=== PATIENT | female | born 1940 | race Caucasian/White ===

== ENCOUNTER 2019-03-19 21:38 | Observation (INO) ==
[2019-03-20] MEDS ORDERED: Naloxone 0.4 MG/ML INJ IVP PRN (04:43)
[2019-03-20] MEDS ORDERED: D5% in Water 1,000 ML IVC PRN (04:44)
[2019-03-20] MEDS ORDERED: Dextrose Gel 15 GM/37.5 ML TUBE PO PRN ×2 (04:44)
[2019-03-20] MEDS ORDERED: *HR* Dextrose 50 % in Water (Syg) 50 ML SYRINGE IVP PRN (04:44)
[2019-03-20] MEDS: 0.9 % Sodium Chloride 1,000 ML IVC SCH ×2 (05:24→21:40)
[2019-03-20] MEDS: Insulin LISPRO 300 UNITS/3 ML VIAL SQ SCH ×3 (05:28→17:51)
[2019-03-20] MEDS: Nicotine 21 MG PATCH.TD24 TD SCH (06:04)
[2019-03-20 07:13] LABS: Hematocrit 31.4 % (35.3-44.9); Hemoglobin 10.1 g/dL (11.5-15.4); Mean Corpuscular HGB Conc 32.2 g/dL (31.6-35.5); Mean Corpuscular Hemoglobin 29.5 pg (28.0-33.3); Mean Corpuscular Volume 91.8 fL (83.0-100.0); Mean Platelet Volume 10.4 fL (9.4-12.4); Platelet Count 366 K/mcL (140-400); Red Blood Count 3.42 M/mcL (3.82-4.97); Red Cell Distribution Width 14.7 % (11.5-14.5)
[2019-03-20 07:21] LABS: INR 1.1; Prothrombin Time 12.6 Seconds (9.4-12.1)
[2019-03-20 07:23] LABS: Activated Partial Thrombo Time 29.3 Seconds (26.0-36.0)
[2019-03-20 07:32] LABS: Alanine Aminotransferase 11 Units/L (7-52); Albumin 3.2 g/dL (3.5-5.7); Albumin/Globulin Ratio 1.1 (1.1-2.2); Alkaline Phosphatase 84 Units/L (34-104); Aspartate Amino Transferase 10 Units/L (13-39); BUN/Creatinine Ratio 16 (6-26); Bilirubin,Total 0.4 mg/dL (0.3-1.0); Blood Urea Nitrogen 11 mg/dL (8-23); Calcium 8.4 mg/dL (8.6-10.3); Carbon Dioxide 22 mEq/L (23-29); Chloride 100 mEq/L (98-107); Globulin 2.9 g/dL (2.4-3.5); Glucose 151 mg/dL (70-105); Magnesium 1.6 mg/dL (1.6-2.6); Osmolality,Calculated 280 (280-300); Potassium 3.6 mEq/L (3.5-5.1); Sodium 134 mEq/L (136-145); Total Protein 6.1 g/dL (6.4-8.9); eGFR For African Americans > 60 (> 60); eGFR For Non-African Americans > 60 (> 60)
[2019-03-20] MEDS: Piperacillin/Tazobactam 3.375 GM in 0.9 % Sodium Chloride Mini Bag 100 ML IVPB SCH ×2 (08:39→16:43)
[2019-03-20] MEDS: *HR* Heparin 5,000 UNIT/ML VIAL SQ SCH (16:43)
[2019-03-20] MEDS: hydrALAZINE 25 MG TABLET PO SCH ×2 (16:44→21:43)
[2019-03-20] MEDS: Ondansetron 4 MG/2 ML VIAL IVP PRN (22:57)
[2019-03-21] MEDS: Piperacillin/Tazobactam 3.375 GM in 0.9 % Sodium Chloride Mini Bag 100 ML IVPB SCH ×3 (00:10→18:02)
[2019-03-21] MEDS: *HR* Heparin 5,000 UNIT/ML VIAL SQ SCH ×2 (05:13→17:37)
[2019-03-21] MEDS: Insulin LISPRO 300 UNITS/3 ML VIAL SQ SCH ×3 (08:21→17:31)
[2019-03-21] MEDS: Aspirin 81 MG TAB.CHEW PO SCH (10:11)
[2019-03-21] MEDS: Diltiazem CD (24hr) 120 MG CAPSULE PO SCH (10:11)
[2019-03-21] MEDS: Isosorbide MONOnitrate (24 HR) 30 MG TAB.ER.24H PO SCH (10:11)
[2019-03-21] MEDS: Furosemide 40 MG TABLET PO SCH (10:11)
[2019-03-21] MEDS: Famotidine 20 MG TABLET PO SCH (10:11)
[2019-03-21] MEDS: *HR* SitaGLIPtin 100 MG TABLET PO SCH (10:12)
[2019-03-21] MEDS: hydrALAZINE 25 MG TABLET PO SCH ×3 (10:12→19:56)
[2019-03-21] MEDS: Nicotine 21 MG PATCH.TD24 TD SCH (10:13)
[2019-03-21 20:51] LABS: Hematocrit 26.9 % (35.3-44.9); Hemoglobin 9.2 g/dL (11.5-15.4); Mean Corpuscular HGB Conc 34.2 g/dL (31.6-35.5); Mean Corpuscular Hemoglobin 29.6 pg (28.0-33.3); Mean Corpuscular Volume 86.5 fL (83.0-100.0); Mean Platelet Volume 10.5 fL (9.4-12.4); Platelet Count 355 K/mcL (140-400); Red Blood Count 3.11 M/mcL (3.82-4.97); Red Cell Distribution Width 14.6 % (11.5-14.5); White Blood Count 13.5 K/mcL (4.3-11.1)
[2019-03-21 22:36] LABS: BUN/Creatinine Ratio 11 (6-26); Blood Urea Nitrogen 10 mg/dL (8-23); Calcium 8.3 mg/dL (8.6-10.3); Carbon Dioxide 21 mEq/L (23-29); Chloride 98 mEq/L (98-107); Glucose 171 mg/dL (70-105); Magnesium 1.6 mg/dL (1.6-2.6); Osmolality,Calculated 275 (280-300); Potassium 3.6 mEq/L (3.5-5.1); Sodium 131 mEq/L (136-145); eGFR For African Americans > 60 (> 60); eGFR For Non-African Americans > 60 (> 60)
[2019-03-22] MEDS: Piperacillin/Tazobactam 3.375 GM in 0.9 % Sodium Chloride Mini Bag 100 ML IVPB SCH ×3 (00:45→16:55)
[2019-03-22] MEDS: *HR* Heparin 5,000 UNIT/ML VIAL SQ SCH ×2 (05:27→16:56)
[2019-03-22] MEDS: Aspirin 81 MG TAB.CHEW PO SCH (09:59)
[2019-03-22] MEDS: Furosemide 40 MG TABLET PO SCH (09:59)
[2019-03-22] MEDS: Diltiazem CD (24hr) 120 MG CAPSULE PO SCH (09:59)
[2019-03-22] MEDS: Isosorbide MONOnitrate (24 HR) 30 MG TAB.ER.24H PO SCH (09:59)
[2019-03-22] MEDS: Famotidine 20 MG TABLET PO SCH (10:00)
[2019-03-22] MEDS: hydrALAZINE 25 MG TABLET PO SCH ×3 (10:00→20:53)
[2019-03-22] MEDS: *HR* SitaGLIPtin 100 MG TABLET PO SCH (10:00)
[2019-03-22] MEDS: Insulin LISPRO 300 UNITS/3 ML VIAL SQ SCH ×3 (10:01→16:56)
[2019-03-22] MEDS: Nicotine 21 MG PATCH.TD24 TD SCH (10:02)
[2019-03-22 21:55] LABS: Hematocrit 28.9 % (35.3-44.9); Hemoglobin 9.5 g/dL (11.5-15.4); Immature Platelets 2.8 % (1.1-6.1); Mean Corpuscular HGB Conc 32.9 g/dL (31.6-35.5); Mean Corpuscular Hemoglobin 28.8 pg (28.0-33.3); Mean Corpuscular Volume 87.6 fL (83.0-100.0); Red Blood Count 3.3 M/mcL (3.82-4.97); Red Cell Distribution Width 14.5 % (11.5-14.5); White Blood Count 7.4 K/mcL (4.3-11.1)
[2019-03-22 22:32] LABS: BUN/Creatinine Ratio 10 (6-26); Blood Urea Nitrogen 9 mg/dL (8-23); Calcium 8.8 mg/dL (8.6-10.3); Carbon Dioxide 23 mEq/L (23-29); Chloride 99 mEq/L (98-107); Glucose 161 mg/dL (70-105); Osmolality,Calculated 274 (280-300); Potassium 3.6 mEq/L (3.5-5.1); Sodium 131 mEq/L (136-145); eGFR For African Americans > 60 (> 60); eGFR For Non-African Americans > 60 (> 60)
[2019-03-23] MEDS: Piperacillin/Tazobactam 3.375 GM in 0.9 % Sodium Chloride Mini Bag 100 ML IVPB SCH ×3 (00:45→15:42)
[2019-03-23] MEDS: *HR* Heparin 5,000 UNIT/ML VIAL SQ SCH ×2 (05:46→17:15)
[2019-03-23] MEDS: Ondansetron 4 MG/2 ML VIAL IVP PRN (09:27)
[2019-03-23] MEDS: Nicotine 21 MG PATCH.TD24 TD SCH ×2 (09:29→09:45)
[2019-03-23] MEDS: Famotidine 20 MG TABLET PO SCH (09:30)
[2019-03-23] MEDS: hydrALAZINE 25 MG TABLET PO SCH ×3 (09:30→21:08)
[2019-03-23] MEDS: Diltiazem CD (24hr) 120 MG CAPSULE PO SCH (09:30)
[2019-03-23] MEDS: Furosemide 40 MG TABLET PO SCH (09:30)
[2019-03-23] MEDS: Isosorbide MONOnitrate (24 HR) 30 MG TAB.ER.24H PO SCH (09:30)
[2019-03-23] MEDS: Aspirin 81 MG TAB.CHEW PO SCH (09:31)
[2019-03-23] MEDS: *HR* SitaGLIPtin 100 MG TABLET PO SCH (09:31)
[2019-03-23] MEDS: Insulin LISPRO 300 UNITS/3 ML VIAL SQ SCH ×3 (09:32→17:12)
[2019-03-23] MEDS: Budesonide/Formoterol 160/4.5 1 PUFF INH IH SCH (20:18)
[2019-03-23] MEDS: Acetaminophen 325 MG TABLET PO PRN (21:27)
[2019-03-24] MEDS: Piperacillin/Tazobactam 3.375 GM in 0.9 % Sodium Chloride Mini Bag 100 ML IVPB SCH ×3 (01:02→15:59)
[2019-03-24] MEDS: Acetaminophen 325 MG TABLET PO PRN (02:18)
[2019-03-24 05:09] LABS: Hematocrit 25.9 % (35.3-44.9); Hemoglobin 8.4 g/dL (11.5-15.4); Mean Corpuscular HGB Conc 32.4 g/dL (31.6-35.5); Mean Corpuscular Hemoglobin 28.9 pg (28.0-33.3); Mean Platelet Volume 10.5 fL (9.4-12.4); Platelet Count 390 K/mcL (140-400); Red Blood Count 2.91 M/mcL (3.82-4.97); Red Cell Distribution Width 14.6 % (11.5-14.5)
[2019-03-24 05:16] LABS: White Blood Count 6.2 K/mcL (4.3-11.1)
[2019-03-24 05:43] LABS: BUN/Creatinine Ratio 9 (6-26); Blood Urea Nitrogen 7 mg/dL (8-23); Calcium 8.6 mg/dL (8.6-10.3); Carbon Dioxide 26 mEq/L (23-29); Chloride 99 mEq/L (98-107); Glucose 133 mg/dL (70-105); Magnesium 1.8 mg/dL (1.6-2.6); Osmolality,Calculated 278 (280-300); Potassium 3.6 mEq/L (3.5-5.1); Sodium 134 mEq/L (136-145); eGFR For African Americans > 60 (> 60); eGFR For Non-African Americans > 60 (> 60)
[2019-03-24] MEDS: *HR* Heparin 5,000 UNIT/ML VIAL SQ SCH ×2 (05:50→17:40)
[2019-03-24] MEDS: Budesonide/Formoterol 160/4.5 1 PUFF INH IH SCH ×2 (07:50→19:57)
[2019-03-24] MEDS: Insulin LISPRO 300 UNITS/3 ML VIAL SQ SCH ×3 (08:40→17:13)
[2019-03-24] MEDS: Aspirin 81 MG TAB.CHEW PO SCH (08:44)
[2019-03-24] MEDS: Diltiazem CD (24hr) 120 MG CAPSULE PO SCH (08:44)
[2019-03-24] MEDS: hydrALAZINE 25 MG TABLET PO SCH ×3 (08:44→20:16)
[2019-03-24] MEDS: Isosorbide MONOnitrate (24 HR) 30 MG TAB.ER.24H PO SCH (08:44)
[2019-03-24] MEDS: Furosemide 40 MG TABLET PO SCH (08:45)
[2019-03-24] MEDS: *HR* SitaGLIPtin 100 MG TABLET PO SCH (08:45)
[2019-03-24] MEDS: Nicotine 21 MG PATCH.TD24 TD SCH (08:46)
[2019-03-24] MEDS: Famotidine 20 MG TABLET PO SCH (08:46)
[2019-03-24] MEDS: cloNIDine HCl 0.1 MG TABLET PO SCH (20:16)
[2019-03-24] MEDS: Insulin DETEMIR 100 UNIT/ML X5UNITS SQ SCH (20:19)
[2019-03-25] MEDS: Piperacillin/Tazobactam 3.375 GM in 0.9 % Sodium Chloride Mini Bag 100 ML IVPB SCH ×3 (01:03→16:04)
[2019-03-25] MEDS: *HR* Heparin 5,000 UNIT/ML VIAL SQ SCH ×2 (06:37→17:51)
[2019-03-25] MEDS: Budesonide/Formoterol 160/4.5 1 PUFF INH IH SCH ×2 (07:31→21:50)
[2019-03-25] MEDS: Insulin LISPRO 300 UNITS/3 ML VIAL SQ SCH ×3 (08:21→17:50)
[2019-03-25] MEDS: Fluticasone Propionate Nasal 50 MCG/SPRAY BOTTLE NS SCH (08:21)
[2019-03-25] MEDS: Aspirin 81 MG TAB.CHEW PO SCH (08:22)
[2019-03-25] MEDS: Furosemide 40 MG TABLET PO SCH (08:22)
[2019-03-25] MEDS: Famotidine 20 MG TABLET PO SCH (08:23)
[2019-03-25] MEDS: hydrALAZINE 25 MG TABLET PO SCH ×3 (08:23→21:06)
[2019-03-25] MEDS: Isosorbide MONOnitrate (24 HR) 30 MG TAB.ER.24H PO SCH (08:23)
[2019-03-25] MEDS: Diltiazem CD (24hr) 120 MG CAPSULE PO SCH (08:23)
[2019-03-25] MEDS: Nicotine 21 MG PATCH.TD24 TD SCH (08:24)
[2019-03-25] MEDS ORDERED: MEMANTINE HCL 14 MG PO SCH (09:00)
[2019-03-25] MEDS ORDERED: *HR* SitaGLIPtin 100 MG TABLET PO SCH (09:00)
[2019-03-25] MEDS: Insulin DETEMIR 100 UNIT/ML X5UNITS SQ SCH (21:05)
[2019-03-25] MEDS: cloNIDine HCl 0.1 MG TABLET PO SCH (21:05)
[2019-03-25] MEDS: Acetaminophen 325 MG TABLET PO PRN (21:17)
[2019-03-26] MEDS: Piperacillin/Tazobactam 3.375 GM in 0.9 % Sodium Chloride Mini Bag 100 ML IVPB SCH ×3 (00:50→15:17)
[2019-03-26] MEDS: *HR* Heparin 5,000 UNIT/ML VIAL SQ SCH ×2 (06:13→17:42)
[2019-03-26] MEDS: Budesonide/Formoterol 160/4.5 1 PUFF INH IH SCH ×2 (08:09→19:53)
[2019-03-26] MEDS: Insulin LISPRO 300 UNITS/3 ML VIAL SQ SCH ×3 (08:30→17:42)
[2019-03-26] MEDS: hydrALAZINE 25 MG TABLET PO SCH ×3 (08:43→21:03)
[2019-03-26] MEDS: Isosorbide MONOnitrate (24 HR) 30 MG TAB.ER.24H PO SCH (08:43)
[2019-03-26] MEDS: Aspirin 81 MG TAB.CHEW PO SCH (08:44)
[2019-03-26] MEDS: Furosemide 40 MG TABLET PO SCH (08:44)
[2019-03-26] MEDS: Famotidine 20 MG TABLET PO SCH (08:44)
[2019-03-26] MEDS: *HR* SitaGLIPtin 25 MG TABLET PO SCH (08:44)
[2019-03-26] MEDS: Diltiazem CD (24hr) 120 MG CAPSULE PO SCH (08:44)
[2019-03-26] MEDS: Nicotine 21 MG PATCH.TD24 TD SCH (08:45)
[2019-03-26] MEDS: Fluticasone Propionate Nasal 50 MCG/SPRAY BOTTLE NS SCH (08:45)
[2019-03-26] MEDS ORDERED: Aminoglycoside Consult 1 EACH MC ONE (12:44)
[2019-03-26] MEDS: Acetaminophen 325 MG TABLET PO PRN (21:03)
[2019-03-26] MEDS: cloNIDine HCl 0.1 MG TABLET PO SCH (21:03)
[2019-03-26] MEDS: Menthol 9.1 MG LOZENGE PO PRN (21:04)
[2019-03-26] MEDS: Insulin DETEMIR 100 UNIT/ML X5UNITS SQ SCH (21:04)
[2019-03-27] MEDS: Piperacillin/Tazobactam 3.375 GM in 0.9 % Sodium Chloride Mini Bag 100 ML IVPB SCH (00:25)
[2019-03-27] MEDS: *HR* Heparin 5,000 UNIT/ML VIAL SQ SCH ×2 (06:14→16:44)
[2019-03-27 06:38] LABS: Basophils % 0.3 %; Eosinophils # 0.1 K/mcL (0.0-0.6); Eosinophils % 2.1 %; Hematocrit 28.2 % (35.3-44.9); Hemoglobin 9.1 g/dL (11.5-15.4); Lymphocytes # 1.4 K/mcL (0.6-4.6); Lymphocytes % 21.8 %; Mean Corpuscular HGB Conc 32.3 g/dL (31.6-35.5); Mean Corpuscular Hemoglobin 29.1 pg (28.0-33.3); Mean Corpuscular Volume 90.1 fL (83.0-100.0); Mean Platelet Volume 10.4 fL (9.4-12.4); Monocytes # 0.6 K/mcL (0.0-1.3); Monocytes % 9.6 %; Neutrophils # 4.1 K/mcL (1.6-8.9); Platelet Count 412 K/mcL (140-400); Red Blood Count 3.13 M/mcL (3.82-4.97); Red Cell Distribution Width 14.8 % (11.5-14.5); Segmented Neutrophils % 65.2 %; White Blood Count 6.3 K/mcL (4.3-11.1)
[2019-03-27 06:57] LABS: BUN/Creatinine Ratio 13 (6-26); Blood Urea Nitrogen 10 mg/dL (8-23); Carbon Dioxide 26 mEq/L (23-29); Chloride 98 mEq/L (98-107); Glucose 123 mg/dL (70-105); Osmolality,Calculated 278 (280-300); Potassium 3.3 mEq/L (3.5-5.1); Sodium 134 mEq/L (136-145); eGFR For African Americans > 60 (> 60); eGFR For Non-African Americans > 60 (> 60)
[2019-03-27] MEDS: Budesonide/Formoterol 160/4.5 1 PUFF INH IH SCH ×2 (07:23→20:03)
[2019-03-27] MEDS: Insulin LISPRO 300 UNITS/3 ML VIAL SQ SCH ×3 (08:20→16:43)
[2019-03-27] MEDS: Aspirin 81 MG TAB.CHEW PO SCH (09:36)
[2019-03-27] MEDS: Furosemide 40 MG TABLET PO SCH (09:36)
[2019-03-27] MEDS: Famotidine 20 MG TABLET PO SCH (09:37)
[2019-03-27] MEDS: *HR* SitaGLIPtin 25 MG TABLET PO SCH (09:37)
[2019-03-27] MEDS: cloNIDine HCl 0.1 MG TABLET PO SCH ×2 (09:37→20:54)
[2019-03-27] MEDS: Diltiazem CD (24hr) 120 MG CAPSULE PO SCH (09:41)
[2019-03-27] MEDS: hydrALAZINE 25 MG TABLET PO SCH ×3 (09:41→20:54)
[2019-03-27] MEDS: Isosorbide MONOnitrate (24 HR) 30 MG TAB.ER.24H PO SCH (09:41)
[2019-03-27] MEDS: Nicotine 21 MG PATCH.TD24 TD SCH (09:42)
[2019-03-27] MEDS: Fluticasone Propionate Nasal 50 MCG/SPRAY BOTTLE NS SCH (09:42)
[2019-03-27] MEDS: cephALEXin 500 MG CAPSULE PO SCH ×2 (10:32→20:54)
[2019-03-27] MEDS: Doxycycline 100 MG CAPSULE PO SCH ×2 (10:32→20:54)
[2019-03-27] MEDS: Acetaminophen 325 MG TABLET PO PRN (10:56)
[2019-03-27] MEDS: Insulin DETEMIR 100 UNIT/ML X5UNITS SQ SCH (20:55)
[2019-03-27] MEDS: Menthol 9.1 MG LOZENGE PO PRN (21:02)
[2019-03-28] MEDS: *HR* Heparin 5,000 UNIT/ML VIAL SQ SCH (05:39)
[2019-03-28 07:51] VITALS: BP 138/73
[2019-03-28] MEDS: Nicotine 21 MG PATCH.TD24 TD SCH (08:10)
[2019-03-28] MEDS: Acetaminophen 325 MG TABLET PO PRN (08:11)
[2019-03-28] MEDS: Furosemide 40 MG TABLET PO SCH (08:11)
[2019-03-28] MEDS: Doxycycline 100 MG CAPSULE PO SCH (08:11)
[2019-03-28] MEDS: Famotidine 20 MG TABLET PO SCH (08:11)
[2019-03-28] MEDS: cloNIDine HCl 0.1 MG TABLET PO SCH (08:12)
[2019-03-28] MEDS: cephALEXin 500 MG CAPSULE PO SCH (08:12)
[2019-03-28] MEDS: Diltiazem CD (24hr) 120 MG CAPSULE PO SCH (08:12)
[2019-03-28] MEDS: *HR* SitaGLIPtin 25 MG TABLET PO SCH (08:12)
[2019-03-28] MEDS: Isosorbide MONOnitrate (24 HR) 30 MG TAB.ER.24H PO SCH (08:12)
[2019-03-28] MEDS: hydrALAZINE 25 MG TABLET PO SCH (08:12)
[2019-03-28] MEDS: Insulin LISPRO 300 UNITS/3 ML VIAL SQ SCH ×2 (08:13→11:57)
[2019-03-28] MEDS: Aspirin 81 MG TAB.CHEW PO SCH (08:13)
[2019-03-28] MEDS: Fluticasone Propionate Nasal 50 MCG/SPRAY BOTTLE NS SCH (08:14)
[2019-03-28] MEDS: Budesonide/Formoterol 160/4.5 1 PUFF INH IH SCH (10:51)
[2019-03-28] MEDS ORDERED: predniSONE 20 MG TABLET PO SCH (12:06)
[2019-03-28] MEDS: Ipratropium/Albuterol Neb 3 ML IH SCH ×2 (15:29→15:30)
== END 2019-03-28 12:45 ==
LOC: 3NENU → SUATTDRO 03-20 01:07 → 3ANU 03-23 17:30
PROVIDERS: ADMIT Internal Medicine; ATTEND Internal Medicine

== ENCOUNTER 2020-01-13 22:36 | Observation (INO) ==
[2020-01-14] MEDS ORDERED: Naloxone 0.4 MG/ML INJ IVP PRN (05:02)
[2020-01-14] MEDS ORDERED: Ondansetron ODT 4 MG TAB.RAPDIS SL PRN (05:02)
[2020-01-14] MEDS ORDERED: Perflutren Lipid Microsphere 1.3 ML in 0.9 % Sodium Chloride 8.7 ML IVP PRN (05:06)
[2020-01-14 06:02] LABS: Adenovirus Not Detected (Not Detect); Bordetella Pertussis Not Detected (Not Detect); Chlamydophila pneumoniae Not Detected (Not Detect); Coronavirus 229E Not Detected (Not Detect); Coronavirus HKU1 Not Detected (Not Detect); Coronavirus NL63 Not Detected (Not Detect); Coronavirus OC43 Not Detected (Not Detect); Human Metapneumovirus Not Detected (Not Detect); Human Rhinovirus/Enterovirus Not Detected (Not Detect); Influenza A Subtype 2009 H1 Not Detected (Not Detect); Influenza B Not Detected (Not Detect); Mycoplasma pneumoniae Not Detected (Not Detect); Parainfluenza Virus 1 Not Detected (Not Detect); Parainfluenza Virus 2 Not Detected (Not Detect); Parainfluenza Virus 3 Not Detected (Not Detect); Parainfluenza Virus 4 Not Detected (Not Detect); Respiratory Syncytial Virus Not Detected (Not Detect); SARS-CoV-2 Not Detected (Not Detect)
[2020-01-14] MEDS ORDERED: Dextrose Gel 15 GM/37.5 ML TUBE PO PRN ×2 (06:31)
[2020-01-14] MEDS ORDERED: D5% in Water 1,000 ML IVC PRN (06:31)
[2020-01-14] MEDS ORDERED: *HR* Dextrose 50 % in Water (Vial) 50 ML VIAL IVP PRN (06:31)
[2020-01-14] MEDS: Insulin LISPRO 300 UNITS/3 ML VIAL SQ SCH ×3 (08:37→16:46)
[2020-01-14 08:59] LABS: Basophils % 0.3 %; Eosinophils # 0.2 K/mcL (0.0-0.6); Eosinophils % 2.9 %; Hematocrit 33.2 % (35.3-44.9); Hemoglobin 10.8 g/dL (11.5-15.4); Immature Granulocytes % 0.3 % (0-4); Lymphocytes # 1.4 K/mcL (0.6-4.6); Lymphocytes % 19.4 %; Mean Corpuscular HGB Conc 32.5 g/dL (31.6-35.5); Mean Corpuscular Hemoglobin 30.6 pg (28.0-33.3); Mean Corpuscular Volume 94.1 fL (83.0-100.0); Mean Platelet Volume 11.7 fL (9.4-12.4); Monocytes # 0.7 K/mcL (0.0-1.3); Monocytes % 8.9 %; Platelet Count 291 K/mcL (140-400); Red Blood Count 3.53 M/mcL (3.82-4.97); Red Cell Distribution Width 14.6 % (11.5-14.5); Segmented Neutrophils % 68.2 %; White Blood Count 7.3 K/mcL (4.3-11.1)
[2020-01-14 09:05] LABS: Prothrombin Time 12.1 Seconds (9.4-12.1)
[2020-01-14 09:26] LABS: Alanine Aminotransferase 11 Units/L (7-52); Albumin/Globulin Ratio 1.5 (1.1-2.2); Alkaline Phosphatase 86 Units/L (34-104); Aspartate Amino Transferase 13 Units/L (13-39); BUN/Creatinine Ratio 14 (6-26); Bilirubin,Total 0.3 mg/dL (0.3-1.0); Blood Urea Nitrogen 10 mg/dL (8-23); Carbon Dioxide 25 mEq/L (23-29); Chloride 104 mEq/L (98-107); Chol/HDL Ratio 2.9 (0-4.9); Cholesterol 190 mg/dL (< 200); Globulin 2.6 g/dL (2.4-3.5); Glucose 131 mg/dL (70-105); HDL Cholesterol 66 mg/dL (40-59); LDL Cholesterol,Calculated 105 mg/dL (< 100); Magnesium 1.8 mg/dL (1.6-2.6); Osmolality,Calculated 287 (280-300); Phosphorous 3.8 mg/dL (2.7-4.5); Potassium 3.4 mEq/L (3.5-5.1); Sodium 138 mEq/L (136-145); Total Protein 6.6 g/dL (6.4-8.9); Triglycerides 93 mg/dL (< 150); Troponin I 0.19 ng/mL (< 0.04); eGFR For African Americans > 60 (> 60); eGFR For Non-African Americans > 60 (> 60)
[2020-01-14 09:34] LABS: Thyroid Stimulating Hormone 1.715 mcIU/mL (0.340-5.600)
[2020-01-14] MEDS: carvediloL 6.25 MG TABLET PO SCH ×2 (09:49→16:47)
[2020-01-14 09:55] LABS: Folate 12.6 ng/mL (3.0-16.0)
[2020-01-14] MEDS: Acetaminophen 325 MG TABLET PO PRN ×2 (12:24→20:40)
[2020-01-14] MEDS ORDERED: Pantoprazole 40 MG VIAL IVP SCH (15:15)
[2020-01-14] MEDS ORDERED: cefTRIAXone 1,000 MG in Water for inj. (sterile) 10 ML IVP SCH (16:00)
[2020-01-14] MEDS: Furosemide 40 MG/4 ML VIAL IVP SCH (16:48)
[2020-01-14] MEDS ORDERED: Insulin LISPRO 300 UNITS/3 ML VIAL SQ SCH (21:00)
[2020-01-15] MEDS ORDERED: Ipratropium/Albuterol Neb 3 ML IH PRN (01:00)
[2020-01-15 04:44] LABS: Basophils % 0.2 %; Eosinophils # 0.2 K/mcL (0.0-0.6); Eosinophils % 2.2 %; Hematocrit 35.9 % (35.3-44.9); Hemoglobin 11.3 g/dL (11.5-15.4); Immature Granulocytes % 0.2 % (0-4); Lymphocytes # 2.3 K/mcL (0.6-4.6); Lymphocytes % 26.1 %; Mean Corpuscular HGB Conc 31.5 g/dL (31.6-35.5); Mean Corpuscular Hemoglobin 29.3 pg (28.0-33.3); Mean Platelet Volume 11.5 fL (9.4-12.4); Monocytes # 0.8 K/mcL (0.0-1.3); Monocytes % 8.8 %; Neutrophils # 5.4 K/mcL (1.6-8.9); Platelet Count 290 K/mcL (140-400); Red Blood Count 3.86 M/mcL (3.82-4.97); Red Cell Distribution Width 14.5 % (11.5-14.5); Segmented Neutrophils % 62.5 %; White Blood Count 8.6 K/mcL (4.3-11.1)
[2020-01-15 04:56] LABS: BUN/Creatinine Ratio 18 (6-26); Blood Urea Nitrogen 14 mg/dL (8-23); Calcium 9.1 mg/dL (8.6-10.3); Carbon Dioxide 23 mEq/L (23-29); Chloride 103 mEq/L (98-107); Glucose 140 mg/dL (70-105); Osmolality,Calculated 287 (280-300); Potassium 3.6 mEq/L (3.5-5.1); Sodium 137 mEq/L (136-145); eGFR For African Americans > 60 (> 60); eGFR For Non-African Americans > 60 (> 60)
[2020-01-15] MEDS ORDERED: Heparin 25,000UNIT/250ML 1/2NS 25,000 UNIT/250 ML IV.SOLN IVC SCH (07:30)
[2020-01-15 07:36] VITALS: BP 183/81
[2020-01-15] MEDS ORDERED: Pantoprazole 40 MG VIAL IVP SCH (09:00)
[2020-01-15] MEDS ORDERED: DilTIAZem CD (24hr) 240 MG CAP.ER.24H PO SCH (09:00)
[2020-01-15] MEDS ORDERED: Albuterol 2.5 MG/3 ML NEBULIZER IH PRN (09:01)
[2020-01-15] MEDS ORDERED: hydrALAZINE 25 MG TABLET PO SCH (09:03)
[2020-01-15] MEDS ORDERED: cloNIDine HCL 0.1 MG TABLET PO SCH (09:04)
[2020-01-15] MEDS: Furosemide 40 MG/4 ML VIAL IVP SCH (09:37)
[2020-01-15] MEDS: carvediloL 6.25 MG TABLET PO SCH (09:45)
[2020-01-15] MEDS: Acetaminophen 325 MG TABLET PO PRN (09:45)
[2020-01-15] MEDS: Insulin LISPRO 300 UNITS/3 ML VIAL SQ SCH (09:48)
[2020-01-16] MEDS ORDERED: Isosorbide MONOnitrate (24 HR) 30 MG TAB.ER.24H PO SCH (09:00)
[2020-01-16] MEDS ORDERED: allopurinoL 100 MG TABLET PO SCH (09:00)
== END 2020-01-15 15:27 | disposition home or self-care (01) ==
LOC: CDU → SUATTDRO 01-14 02:27 → 2ANU 01-14 07:30
PROVIDERS: ADMIT Internal Medicine; ATTEND Student in an Organized Health Care Education/Training Program